=== PATIENT | female | born 1975 | race Caucasian/White ===

== ENCOUNTER 2016-07-11 19:45 | Emergency (ER) | payer SELFPAY ==
[2013-06-05 20:29] VITALS: BMI 32.7
[~2016-07-11 19:45] MED LIST: IBUPROFEN600 MG PO; NORCO 7.5/325 T1 TA1 PO; PROVENTIL HFA6.7 GM INH; ZANAFLEX4 MG PO; ZOFRAN4 MG PO
== END 2016-07-11 22:05 | disposition home or self-care (01) ==
LOC: D.ER 19:45
DX: M75.91 Shoulder lesion, unspecified, right shoulder (principal); S46.911A Strain of unspecified muscle, fascia and tendon at shoulder and upper arm level, right arm, initial encounter; X58.XXXA Exposure to other specified factors, initial encounter; Y93.89 Activity, other specified; Y92.89 Other specified places as the place of occurrence of the external cause; M25.511 Pain in right shoulder; J45.909 Unspecified asthma, uncomplicated

== ENCOUNTER 2016-09-07 18:11 | Emergency (ER) | payer SELFPAY ==
[2013-06-05 20:29] VITALS: BMI 32.7
== END 2016-09-07 20:12 | disposition home or self-care (01) ==
LOC: D.ER 18:11
DX: J45.901 Unspecified asthma with (acute) exacerbation (principal)